=== PATIENT | female | born 1955 | race African-American/Black ===

== ENCOUNTER 2017-03-05 23:31 | Emergency (ER) | payer OTHER ==
[~2017-03-05] VITALS: Ht 170.2 cm; Wt 105.6 kg
[~2017-03-05 23:31] MED LIST: CHOL5000 PO; DOCU240C31 PO; FELO5TAB PO; IBUP25PO PO; LORA10CA PO; MULT-257 PO; NAPH15DR4 EACHEYE; OMEG1CAP6 PO; OXYC-302 PO; PRAV40TA2 PO; PROG200C2 PO; XYLITOL NS
[2017-03-05 23:44] VITALS: BP 182/78
[2017-03-06] MEDS ORDERED: NITROFURANTOIN (MACROBID) 100 MG CAPSULE PO ONE (00:30)
[2017-03-06] MEDS ORDERED: PHENAZOPYRIDINE 200 MG TABLET PO ONE (00:30)
[2017-03-06] MEDS ORDERED: PHENAZOPYRIDINE 200 MG TABLET ONE (00:33)
== END 2017-03-06 01:02 | disposition home or self-care (01) ==
LOC: ED 23:59
DX: N30.00 Acute cystitis without hematuria (principal); Z88.0 Allergy status to penicillin; Z88.2 Allergy status to sulfonamides
CPT/HCPCS: 81001; 87077; 87086; 87186; 99284

== ENCOUNTER 2019-11-24 19:07 | Emergency (ER) | payer MEDICARE, OTHER ==
[~2019-11-24] VITALS: Ht 170.2 cm; Wt 105.8 kg
[~2019-11-24 19:07] MED LIST changes: -FELO5TAB PO; +FELO5TAB4 PO; +PROG200C10 PO; -PROG200C2 PO
[2019-11-24 19:09] VITALS: BP 145/82
--- NOTE | 2019-11-24 19:29 | NUR ---
PT PROVIDED URINE SAMPLE. UA COLLECTED AND SENT TO LAB.
[2019-11-24] MEDS ORDERED: PHENAZOPYRIDINE 200 MG TABLET PO ONE (19:30)
[2019-11-24] MEDS ORDERED: PHENAZOPYRIDINE 200 MG TABLET ONE (19:31)
--- NOTE | 2019-11-24 19:33 | NUR ---
MEDS ADMIN PER SEP. PT RESTING COMFORTABLY ON GURMYLO. MARIBEL.
[2019-11-24 19:39] LABS: MICROSCOPIC INDICATED
[2019-11-24 19:49] LABS: CULTURE INDICATED? YES
--- NOTE | 2019-11-24 19:54 | NUR ---
ALL RESULTS ARE BACK AT THIS TIME. CHART UP FOR RECHECK.
[2019-11-24] MEDS ORDERED: CEFDINIR 300 MG CAPSULE PO ONE (20:00)
[2019-11-24] MEDS ORDERED: CEFDINIR 300 MG CAPSULE ONE (20:30)
--- NOTE | 2019-11-24 20:39 | NUR ---
MEDS ADMIN PER SEP.
== END 2019-11-24 20:41 | disposition home or self-care (01) ==
LOC: ED 19:30
DX: N39.0 Urinary tract infection, site not specified (principal)
CPT/HCPCS: 81001; 87077; 87086; 99283